=== PATIENT | female | born 1985 | race Caucasian/White ===

== ENCOUNTER 2018-02-09 20:50 | Emergency (ER) | payer SELFPAY ==
[2018-02-09 20:52] VITALS: BP 129/85; PULSE 84; RESP 16; TEMP 37.3; O2SAT 98; BMI 25.8
[2018-02-09 21:05] VITALS: BP 140/84; PULSE 84; RESP 18; O2SAT 100
[2018-02-09] MEDS: 0.9% Normal Saline 1,000 ML 150 ML IV (21:41)
[2018-02-09] MEDS: Ondansetron 4 MG/2 ML Vial IV (21:41)
[2018-02-09] MEDS: Morphine 4 MG/ML Syringe IV (21:41)
[2018-02-09 21:58] LABS: Absolute Lymphocyte Count 3.57 X10^3/ul (0.83-4.51); Absolute Neutrophil Count 3.9 X10^3/uL (2.0-7.7); Basophil# 0.07 X10^3/uL; Basophil% 0.8 % (0-1); Eosinophil# 0.24 X10^3/uL; Eosinophils% 2.9 % (0-5); Hematocrit 39.4 % (37-47); Hemoglobin 13.2 g/dl (12.0-15.0); Lymphocyte # 3.57 X10^3/ul (4.0); Lymphocyte % 42.4 % (19-41); Mean Corp Hgb Conc 33.5 g/gl (32-36); Mean Corpuscular Hgb 30.8 pg (27.0-32.0); Mean Corpuscular Volume 91.8 fL (81-99); Mean Platelet Vol. 9.7 fl (6.2-12.0); Monocyte# 0.58 X10^3/uL; Monocyte% 6.9 % (0-10); Neutrophil # 3.94 X10^3/uL (2.7-7.7); Neutrophil % 46.8 % (47-70); POSITIVE COUNT NO; POSITIVE DIFFERENTIAL NO; POSITIVE MORPHOLOGY NO; Platelet Count 401 K/mm3 (150-450); RBC Distribution Width CV 13.1 % (11.6-14.6); RBC Distribution Width SD 43.4 fl (35.1-43.9); Red Blood Count 4.29 M/mm3 (4.2-5.4); White Blood Count 8.4 K/mm3 (4.4-11.0)
[2018-02-09 22:10] LABS: Anion Gap 10 (5-15); BUN 12 mg/dL (7-18); BUN/Creat Ratio 21.6 RATIO (10-20); Calcium,Total 8.9 mg/dL (8.5-10.1); Chloride 109 mmol/L (98-107); Creatinine, Serum 0.56 mg/dL (0.55-1.02); EST Glomerular Filtration Rate 136 mL/min (>60); Est Glom Filt Rate - Afr Amer 165 mL/min (>60); Estimated Creatinine Clearance 132.18 ml/min; Glucose 104 mg/dL (74-106); Potassium 3.2 mmol/L (3.5-5.1); Sodium Level 144 mmol/L (136-145)
--- NOTE | 2018-02-09 22:24 | ED.DCSUM_ITS ---
- ER Visit Summary Date of Service: 02/09/18 Chief Complaint: Postop pain History of Present Illness: The patient is a 32 F who underwent an emergency C- section on January 29 in [place]. She has noted increasing pelvic pain. This morning she had heavier bleeding, that is now improved. She denies fever or chills. Patient states she is recently back home after staying in the NICU with her baby. She has multiple other children at home and has been increasing her activity quite a bit. Physical Examination: Vital signs unremarkable. Patient's lying in bed no acute distress. She is nontoxic appearing. Heart is regular rate and rhythm. Lung sounds are clear. Abdomen is soft with tenderness of the lower abdomen. Her incision is clean with no sign of infection. There is no guarding or rebound. Test Results: CBC and chemistry studies reveal normal white count. Potassium slightly low at 3.2. Urine was collected and sent it does appear clear, although final results are not back yet. Ultrasound of the pelvis shows heterogeneous appearance of the endometrium with overall thickened appearance concerning for underlying complex collection and infection/inflammation with retained products is not completely excluded. Emergency Department Course and Treatment: Patient received morphine, Zofran, and IV fluids. Patient would prefer to follow-up here locally as she is not even sure what Dr. noriega is to follow-up with in [place]. I spoke with Dr. Padilla, on-call. With the patient having no white count or fever suspicion for infection is less. Patient also had a which is less likely to result in retained products. Patient will be treated with doxycycline for 10 days. She will be given a short course of Percocet which she will parts picker the pharmacy tomorrow. Treatment Plan: [] Disposition: Discharge Impression: Postop pain This note was generated with [employer] dictation software. It may contain incorrect words, spelling, and punctuation that were not noted in review of the chart prior to signing ED Disposition - Plan for ED Patient: Chief Complaint: Other, Pain/Inj Referrals: Care Physician,No Primary [Primary Care Provider] -
--- NOTE | 2018-02-09 22:25 | US_ITS ---
STUDY: ULTRASOUND OF THE FEMALE PELVIS - COMPLETE REASON FOR EXAM: Female, 32 years old. Pelvic pain. LMP: 01/29/2018 patient had a 01/29/2018 with pain at the surgical site. TECHNIQUE: Transabdominal and Transvaginal TECHNICAL QUALITY: Adequate. COMPARISON: None. FINDINGS: The uterus is anteverted and is in a midline position. The uterus measures 14.7 x 6.4 x 9.4 cm. Normal uterine cervix. The endometrium measures 29 mm in thickness, and is heterogeneous. There is no demonstrated endometrial mass. There is no demonstrated myometrial mass. I.U.D. - The patient does not have an I.U.D. The right ovary is visualized. The right ovary measures 4.4 x 2.0 x 2.0 cm. There is no right ovarian cyst or ovarian mass. There is no visualized right adnexal mass or complex lesion. There is normal arterial and normal venous vascularity. The left ovary is visualized. The left ovary measures 3.6 x 3.3 x 2.5 cm. There is no left ovarian cyst or ovarian mass. There is no visualized left adnexal mass or complex lesion. There is normal arterial and normal venous vascularity. There is no fluid in the cul-de-sac. The pre void volume of the bladder was ml. The post void volume of the bladder was ml. Polycystic ovary disease: No. US/Transvaginal Non- IMPRESSION: Heterogeneous appearance of the endometrium with overall thickened appearance concerning for underlying complex collection and infection/inflammation with retained products not excluded. Recommend gynecologic consultation for further assessment and management. Inflammation and infection etiology at the incision site is also not excluded given appearance. Electronically Signed: Sung Oliver DO at 23:52 EDT , Service support ,
--- NOTE | 2018-02-09 22:25 | US_ITS ---
STUDY: ULTRASOUND OF THE FEMALE PELVIS - COMPLETE REASON FOR EXAM: Female, 32 years old. Pelvic pain. LMP: 01/29/2018 patient had a 01/29/2018 with pain at the surgical site. TECHNIQUE: Transabdominal and Transvaginal TECHNICAL QUALITY: Adequate. COMPARISON: None. FINDINGS: The uterus is anteverted and is in a midline position. The uterus measures 14.7 x 6.4 x 9.4 cm. Normal uterine cervix. The endometrium measures 29 mm in thickness, and is heterogeneous. There is no demonstrated endometrial mass. There is no demonstrated myometrial mass. I.U.D. - The patient does not have an I.U.D. The right ovary is visualized. The right ovary measures 4.4 x 2.0 x 2.0 cm. There is no right ovarian cyst or ovarian mass. There is no visualized right adnexal mass or complex lesion. There is normal arterial and normal venous vascularity. The left ovary is visualized. The left ovary measures 3.6 x 3.3 x 2.5 cm. There is no left ovarian cyst or ovarian mass. There is no visualized left adnexal mass or complex lesion. There is normal arterial and normal venous vascularity. There is no fluid in the cul-de-sac. The pre void volume of the bladder was ml. The post void volume of the bladder was ml. Polycystic ovary disease: No. US/Pelvic (Non ) IMPRESSION: Heterogeneous appearance of the endometrium with overall thickened appearance concerning for underlying complex collection and infection/inflammation with retained products not excluded. Recommend gynecologic consultation for further assessment and management. Inflammation and infection etiology at the incision site is also not excluded given appearance. Electronically Signed: Sung Oliver DO at 23:52 EDT , Service support ,
[2018-02-10 00:05] LABS: Bacteria 0 SEEN /hpf (None Seen); Mucous, Urine 0 SEEN /hpf (<or=2+); Red Blood Cells-Urine 0 SEEN /hpf (0-5); White Blood Cells 0 SEEN /hpf (0-5)
[2018-02-10] MEDS: Morphine 4 MG/ML Syringe IV (00:06)
[2018-02-10] MEDS: Ondansetron 4 MG/2 ML Vial IV (00:07)
--- NOTE | 2018-02-10 00:07 | ED.DEP ---
ED Disposition - Plan for ED Patient: Disposition: Home or Assisted Living Chief Complaint: Other, Pain/Inj Instructions: ED Post Op Pain Prescriptions: Oxycodone HCl/Acetaminophen [Percocet 5/325] 1 tablet PO Q6H PRN PRN 3 Days #12 tablet PRN Reason: Pain Doxycycline Monohydrate 100 mg PO BID #20 cap Referrals: Valeria Padilla MD [STAFF PHYSICIAN] - As Needed
[2018-02-10 00:14] LABS: Color, Urine Yellow (Yellow); Glucose, Dipstick Normal (Normal); Ketone-Dipstick Negative (Negative); Leukocyte Esterase-Dipstick 25 /ul (Negative); Nitrite-Dipstick Negative (Negative); Occult Blood-Urine 250 /ul (Negative); Protein-Dipstick Negative (Negative); Specific Gravity, Urine 1.015 (1.002-1.030); Urine Bilirubin Dipstick Negative (Negative); Urine Clarity Clear (Clear); Urine Urobilinogen Normal (Normal); Urine pH 6.5 (5.0 - 8.0)
[2018-02-10 00:18] VITALS: BP 140/90; PULSE 67; RESP 16; O2SAT 97
[2018-02-10 00:19] VITALS: BP 140/90; PULSE 67; RESP 16; O2SAT 97
[2018-02-10 00:20] LABS: Squamous Epithelial Cells - UA 0-5 SEEN /hpf (5-10)
[2018-02-10] MEDS: Doxycycline 100 MG CAPSULE PO (00:23)
== END 2018-02-10 00:30 | disposition home or self-care (01) ==
PROVIDERS: Emergency Provider Emergency Medicine
DX: R10.2 Pelvic and perineal pain (principal); G89.18 Other acute postprocedural pain; Z72.0 Tobacco use
CPT/HCPCS: 76830; 76856; 80048; 81001; 85025; 93976; 96361; 96374; 96375; 96376; 99284; J7030; J2405

== ENCOUNTER 2019-08-06 16:52 | Emergency (ER) | payer MEDICAID, SELFPAY ==
[2019-08-06 16:53] VITALS: BP 141/88; PULSE 112; RESP 16; TEMP 36.9; O2SAT 100; BMI 30.2
--- NOTE | 2019-08-06 17:24 | ED.DCSUM_ITS ---
History of Present Illness Chief Complaint: Dental Narrative: Patient states that little over a week ago she had left lower dental pain and went to the emergency department at [place]. She states she was put on penicillin (despite a amoxicillin allergy she states that she cannot tolerate penicillin) and she was taking Motrin and Tylenol. She states that she took 7 days of the antibiotic as prescribed. Now she states the pain is returning and more constant. She notes radiation up to her ear. She states she has a dental appointment on August 21. I asked her why she did not return to [place] or why she went there instead of here and she stated that her dad was driving so he chose the hospital. He was not driving today so she chose to come here. In the past the patient has had numerous ED visits for dental pain. But in the past year and a half none. Past Medical History - Allergies and Home Meds Allergies/Adverse Reactions: Allergies amoxicillin [Amoxicillin] Allergy (Verified 08/06/19 16:55) Rash brompheniramine maleate [From Dimetapp Cold-Allergy (PE)] Allergy (Verified 08/06/19 16:55) Rash butorphanol tartrate [From Stadol] Allergy (Verified 08/06/19 16:55) Other phenylephrine HCl [From Dimetapp Cold-Allergy (PE)] Allergy (Verified 08/06/19 16:55) Rash Primary Care Physician: Care Physician,No Primary [Primary Care Provider] - Smoking Status: Current every day smoker Review of Systems General: Denies: Chills, Fever, Sweats Eyes: Denies: Visual changes - bilaterally, Diplopia ENT: Reports: - - Dental pain. Denies: Rhinorrhea, Sore throat Cardiovascular: Denies: Chest pain, Palpitations Respiratory: Denies: Dyspnea, Cough, Dyspnea on exertion Gastrointestinal: Denies: Abdominal pain, Nausea, Vomiting, Diarrhea, Melena, Hematochezia Genitourinary: Denies: Dysuria, Hematuria, Frequency Musculoskeletal: Denies: Back pain, Extremity Pain Skin: Denies: Rash, Wounds Neurological: Denies: Headache, Weakness, Numbness Physical Exam Vital Signs/Narrative: Vital Signs Temp Pulse Resp BP Pulse Ox 08/06/19 16:53 98.5 F 112 H 16 141/88 H 100 Inital Vital Signs reviewed: Yes General: Well nourished, Well developed, No Acute Distress Head: Normocephalic, Atraumatic Eyes: Perrl, EOMI ENT: Moist mucous membranes, No rhinorrhea, - - Left lower premolar is decayed down to the gumline. There is some mild swelling around the tooth. There is no facial erythema or significant swelling. There is tenderness along the mandible. There is no trismus. Floor the mouth is soft. No drooling. Neck: Supple, Nontender Cardiovascular: Regular rate, Regular rhythm, No murmurs Respiratory: No distress, CTA bilaterally, Chest nontender Abdomen: Soft, Nontender, Nondistended, Normal bowel sounds Back: Nontender, Normal Inspection Extremities: Nontender, No edema Skin: Normal color, No rash Neurological: Alert, Oriented x3, Cranial nerves II-XII grossly intact, Normal Strength, Normal Sensation Psychological: Normal affect, Normal Mood Diagnostic/Tx/Re-eval - Medical Decision Making Oars report was performed. Patient has not had any pain medication prescribed in almost 1 year. I will start the patient on clindamycin as she is already been on penicillin. I will write for a small amount of pain medicine. ED Disposition - Plan for ED Patient: Disposition: Home or Assisted Living Diagnosis: Periapical abscess Instructions: Dental Abscess Prescriptions: Clindamycin HCl [Cleocin] 300 mg PO Q6H #40 cap Prescription Printed Ibuprofen [Motrin] 800 mg PO TID PRN PRN #21 tab PRN Reason: Pain Or Fever Prescription Printed Hydrocodone Bitart/Apap 5-325 [[place] 5MG-325MG] 1 tab PO Q6H PRN PRN 3 Days #10 tab PRN Reason: Pain Prescription Printed Additional Instructions: Please see your dentist as soon as possible
== END 2019-08-06 17:41 | disposition home or self-care (01) ==
LOC: ED 17:30
PROVIDERS: Emergency Provider Emergency Medicine
DX: K04.7 Periapical abscess without sinus (principal); F17.200 Nicotine dependence, unspecified, uncomplicated
CPT/HCPCS: 99282

== ENCOUNTER 2019-11-12 17:36 | Emergency (ER) | payer MEDICAID, SELFPAY ==
[2019-11-12 17:37] VITALS: BP 133/91; PULSE 109; RESP 16; TEMP 36.6; O2SAT 100; BMI 30.2
--- NOTE | 2019-11-12 17:49 | ED.DCSUM_ITS ---
- ER Visit Summary Date of Service: 11/12/19 Chief Complaint: Left lower jaw dental swelling History of Present Illness: The patient is a 34 F no significant past medical history. Multiple prior ER visits for back and dental pain. Patient believes she may have a dental abscess. Said she has swelling her left lower jaw today. No fever or chills. No trouble swallowing or breathing. She currently does not have a dentist. Physical Examination: Well-appearing female. Vital signs stable afebrile. No acute distress. H EENT exam moist mucous membranes. Very very poor decaying dentition. Multiple cavities. Her left lower second to last molar is missing. There is swelling there. There is no fluctuance. There is no abscess to drain. There is no trismus. The floor of her mouth is unremarkable. Posterior pharynx is normal. There is no cervical lymphadenopathy or tenderness. No facial swelling. Lungs clear to auscultation bilaterally. Heart regular rhythm no murmur. Abdomen soft nontender normal bowel sounds no peritoneal signs. Moving all 4 extremities. No edema. Neurologically she is awake alert with no focal motor deficits. Test Results: None Emergency Department Course and Treatment: Patient has gingivitis. There is no abscess to be drained at this time. Treatment Plan: Clindamycin 4 times daily for 10 days. Tylenol Motrin for pain. Follow-up with his dentist. Disposition: Discharge Impression: Acute gingivitis with dental abscess, dental caries and decay This note was generated with [employer] dictation software. It may contain incorrect words, spelling, and punctuation that were not noted in review of the chart prior to signing ED Disposition - Plan for ED Patient: Referrals: Care Physician,No Primary [Primary Care Provider] -
--- NOTE | 2019-11-12 17:51 | ED.DEP ---
ED Disposition - Plan for ED Patient: Disposition: Home or Assisted Living Instructions: ED Abscess Antibiotic Treatment Only Prescriptions: Clindamycin [Cleocin] 300 mg PO 4X/DAY 10 Days #80 cap Prescription Printed Referrals: Rose Riley [NON-STAFF] - As soon as possible Additional Instructions: Call and follow-up with a dentist as soon as possible. Clindamycin is the antibiotic 4 times a day. Tylenol and Motrin for pain. Warm salt water gargling.
== END 2019-11-12 18:33 | disposition home or self-care (01) ==
LOC: ED 18:09
PROVIDERS: Emergency Provider Emergency Medicine
DX: K05.00 Acute gingivitis, plaque induced (principal); K04.7 Periapical abscess without sinus; K02.9 Dental caries, unspecified; F17.200 Nicotine dependence, unspecified, uncomplicated
CPT/HCPCS: 99282